=== PATIENT | male | born 1975 | race Caucasian/White ===

== ENCOUNTER 2018-12-22 08:15 | Emergency (ER) | payer SELFPAY | END 2018-12-22 09:00 | disposition home or self-care (01) | LOC: ERS 08:15 | DX: M54.5 Low back pain (principal); G89.29 Other chronic pain; F17.210 Nicotine dependence, cigarettes, uncomplicated | CPT/HCPCS: 99282 ==

== ENCOUNTER 2020-11-26 15:10 | Emergency (ER) | payer SELFPAY ==
[2020-11-26] MEDS ORDERED: Boostrix 0.5 ML (Tdap) VIAL ONE (15:46)
[2020-11-26] MEDS ORDERED: Lidocaine 1% w/Epinephrine 1:100K 20 ML VIAL ONE (15:46)
== END 2020-11-26 16:40 | disposition home or self-care (01) ==
LOC: ERS 15:10
DX: S41.111A Laceration without foreign body of right upper arm, initial encounter (principal); W45.8XXA Other foreign body or object entering through skin, initial encounter
CPT/HCPCS: 12002; 90471; 90715

== ENCOUNTER 2021-07-02 08:29 | Emergency (ER) | payer OTHER, SELFPAY ==
[2021-07-02] MEDS ORDERED: Acetaminophen 500 MG TAB ONE (09:24)
[2021-07-02] MEDS ORDERED: Ketorolac Tromethamine 30 MG/ML VIAL ONE (09:24)
== END 2021-07-02 09:45 | disposition home or self-care (01) ==
LOC: ERS 08:29
DX: S92.141A Displaced dome fracture of right talus, initial encounter for closed fracture (principal); S93.401A Sprain of unspecified ligament of right ankle, initial encounter; S80.01XA Contusion of right knee, initial encounter; S50.811A Abrasion of right forearm, initial encounter; R03.0 Elevated blood-pressure reading, without diagnosis of hypertension; M19.90 Unspecified osteoarthritis, unspecified site; W01.0XXA Fall on same level from slipping, tripping and stumbling without subsequent striking against object, initial encounter
CPT/HCPCS: 96372; J1885